=== PATIENT | male | born 1950 | race Caucasian/White ===

== ENCOUNTER 2021-11-18 06:40 | Day surgery (SDC) | payer OTHER ==
[~2021-11-18] VITALS: Ht 172.7 cm; Wt 111.4 kg
[~2021-11-18 06:40] MED LIST: ALOGLIPTIN25 MG PO; CARDIZEM CD240 MG; GLYCOTROL CAPS1 EACH PO; LEVAQUIN500 MG PO; LEVOTHYROXINE125 MCG; LIPITOR10 MG; LISINOPRIL20 MG PO; SPIRIVA18 MCG INH; VENTOLIN HFA18 GM INH
--- NOTE | 2021-11-18 11:24 | NUR ---
11/18/21 1124 Kate Niño 1114- PT ARRIVES TO PACU NONAROUSABLE TO STIMULI WITH AN NPA IN PLACE. RESP EVEN AND UNLABORED. OXYGEN SAT HIGH 90'S TO 100% ON 6L VIA MASK. 1117- PT WAKING UP ON HIS OWN. PT UPDATED THAT HE IS IN THE RECOVERY ROOM. ASKED PT IF HE WANTS THE NPA OUT OF HIS NOSE. PT NODS. NPA REMOVED. 1119- PT TRYING TO REPOSITION HIMSELF. PT ASSISTED WITH HELP FROM ANOTHER RN. PT ROLLED TO HIS BACK AND SAT UP IN BED. PT PROVIDED TISSUES TO BLOW HIS NOSE. OXYGEN TITRATED OFF.
--- NOTE | 2021-11-19 07:11 | OR ---
[facility] [address], [place] [address] Signed DATE OF OPERATION: 11/18/2021 SURGEON: Robbie Carrillo MD PREOPERATIVE DIAGNOSES: 1. Mild iron-deficiency anemia. 2. Diverticulosis. POSTOPERATIVE DIAGNOSES: 1. Mild diffuse gastric duodenitis. 2. 5-mm polyp at 65 cm. 3. Minimal to moderate sigmoid diverticulosis. 4. Minimal to moderate internal and external hemorrhoids. PROCEDURES: 1. EGD with CLOtest, biopsies of the pyloric bulb and antrum. 2. Colonoscopy with hot biopsy. ESTIMATED BLOOD LOSS: None. INDICATIONS: Nika is an obese, diabetic gentleman, asked to see me for upper and lower endoscopy. He was found to have some mild iron-deficiency anemia recently with a hemoglobin of 12.2 and a mean cell volume of 79. He took iron tablets and that is now corrected that hemoglobin 14.1 and mean cell volume of 89. He recalls a colonoscopy around age 51 - 56. He was told he had a little bit of diverticulosis, but not to worry about it. He has no family history of colon cancer or polyps. In the office, I gave him pamphlets on both upper and lower endoscopy. We had reviewed the nature of the test along with the risks including, but not limited to gas bloating, crampy abdominal pain, bleeding, perforation requiring surgery, and missed diagnosis. Also because of his advanced medical issues along with his right around full face and heavy neck, we asked that an anesthesia provider help us with increased monitoring sedation with propofol. That proved to be a gonzalez decision as he required a nasal trumpet and an oral airway. PROCEDURE NOTE: Nika was taken into our endoscopy suite and placed in a supine semi-recumbent position. He was given monitored anesthesia care per our nurse farmworker rice. He ended up needing a nasal trumpet and oral airway. He also needed jaw thrust. After a bit, he settled down, we were able to pass the adult gastroscope down into the duodenum itself. Electronically Signed By: ROBBIE CARRILLO MD 11/19/21 0711 PATIENT NAME: NIKA STARK EMRY III OPERATIVE REPORT DATE OF : 52 REPORT #: [id number] PHYSICIAN: ROBBIE CARRILLO MD PCP: KEITH HDZ MD REPORT IS CONFIDENTIAL AND NOT TO BE RELEASED WITHOUT AUTHORIZATION [facility] [address] [place], [place] [address] Signed The duodenum was unremarkable. The pyloric channel in the stomach showed mild diffuse erythematous changes. No ulcerations. We took biopsies at the pyloric channel and the antrum for pathologic review. We took an additional biopsy of the antrum for CLOtest. Upon retroflexion of scope, he does not appear to have a much of a hiatal hernia. He might just have a bit of a short lower esophageal sphincter. The scope was withdrawn up to the GE junction, which was compliant without stricture. Very minimal disruption to his Z-line. There was no Bond's mucosa. No distal esophagitis. No gastric or esophageal varices. The middle and upper esophagus were unremarkable. After this, the gas was suctioned out and the gastroscope removed. Nika tolerated the procedure quite well. Nika was then rotated into the left lateral decubitus position. He was maintained on monitored anesthesia care. A digital rectal exam was performed and he does have minimal to moderate external circumferential hemorrhoids. A good sphincter tone. His prostate is indurated and enlarged consistent with his age. The adult colonoscope was introduced and advanced under direct visualization of the camera. It took just a little extra abdominal compression in order to advance the scope around hepatic flexure and down into the cecum itself. His prep was good. We could see the appendiceal orifice and the ileocecal valve. We took pictures throughout for photodocumentation. The scope was then slowly withdrawn. He had one small 5-mm polyp removed at 65 cm with the help of a hot biopsy forceps. He does have diverticula in the sigmoid colon. They were moderate in size, few in number, and scattered about. The rectum was unremarkable. Upon retroflexion of scope, he does have minimal to moderate internal hemorrhoids as well. After this, the gas was suctioned out. The colonoscope removed. Nika tolerated the procedure quite well. RECOMMENDATIONS: I will see Nika back in my office in 7 to 14 days to review his results. Robbie Carrillo MD ALB/MODL /[id number] cc: Robbie Carrillo MD Electronically Signed By: ROBBIE CARRILLO MD 11/19/21 0711 PATIENT NAME: NIKA STARK EMRY III OPERATIVE REPORT DATE OF : 52 REPORT #: [id number] PHYSICIAN: ROBBIE CARRILLO MD PCP: KEITH HDZ MD REPORT IS CONFIDENTIAL AND NOT TO BE RELEASED WITHOUT AUTHORIZATION [facility] [address] [place], [place] [address] Signed [facility] Copies: ROBBIE CARRILLO MD ~ Electronically Signed By: ROBBIE CARRILLO MD 11/19/21 0711 PATIENT NAME: NIKA STARK CIPRIANO III OPERATIVE REPORT DATE OF : 52 REPORT #: [id number] PHYSICIAN: ROBBIE CARRILLO MD PCP: KEITH HDZ MD REPORT IS CONFIDENTIAL AND NOT TO BE RELEASED WITHOUT AUTHORIZATION
--- NOTE | 2021-11-22 14:40 | PATH ---
[facility] [address] [place], [place] [address] Signed SPECIMEN(S): A PYLORIC CHANNEL BIOPSY SPECIMEN(S): B ANTRUM/PYLORUS BIOPSY SPECIMEN(S): C COLON POLYP AT 65 CM SPECIMEN SOURCE: A. PYLORIC CHANNEL BIOPSY B. ANTRUM/PYLORUS BIOPSY C. COLON POLYP AT 65 CM CLINICAL HISTORY: Pre-op: Anemia, diverticulosis. Post-op: Diverticulosis, polyp, internal and external hemorrhoids. FINAL PATHOLOGIC DIAGNOSIS: A. Designated "pyloric channel", biopsy: - Duodenal mucosa with no histopathologic abnormality. - Negative for increased intraepithelial lymphocytes or villous blunting. - Negative for dysplasia or malignancy. B. Stomach, antrum/pylorus, biopsy: - Antral mucosa with chronic, inactive gastritis. - Negative for Helicobacter pylori organisms on HE stain. - Negative for dysplasia or malignancy. C. Colon, polyp at 65 cm, polypectomy: - Tubular adenoma. - Negative for high-grade dysplasia or malignancy. NAL:cml:C2NR MICROSCOPIC EXAMINATION: Histologic sections of all submitted blocks are examined by light microscopy. These findings, together with the gross examination, support the pathologic diagnosis. GROSS DESCRIPTION: Three specimens are received in three containers, labeled "HD." A. The specimen, labeled "HD, 1," and designated on the requisition "pyloric channel," is received in formalin and consists of one baptiste soft tissue fragment that measures 0.3 cm in greatest dimension. The specimen is entirely submitted in cassette (A1). B. The specimen, labeled "HD, 2," and designated on the requisition "antrum/pylorus," is received in formalin and consists of one baptiste soft tissue fragment that measures 0.3 cm in greatest dimension. PATIENT NAME: NIKA STARK III PATHOLOGY DATE OF : 52 REPORT #: [id number] PHYSICIAN: [facility] PCP: KEITH HDZ MD REPORT IS CONFIDENTIAL AND NOT TO BE RELEASED WITHOUT AUTHORIZATION [facility] [address] [place], [place] [address] Signed The specimen is entirely submitted in cassette (B1). C. The specimen, labeled "HD, 3," and designated on the requisition "colon polyp at 65 cm," is received in formalin and consists of two baptiste soft tissue fragments that measure 0.3 cm in greatest dimension. The specimen is entirely submitted in cassette (C1). AT (under the direct supervision of a pathologist) The Gross Description was prepared using a voice recognition system. The report was reviewed for accuracy; however, sound-alike word errors, addition and/or deletions may occur. If there is any question about this report, please contact Client Services. PERFORMING LABORATORY: The technical component was performed by [employer], [address] [place] [id number] (Airplane Flight Attendant Supervisor: Radha Martinez MD; CLIA# [id number]). [facility], [address] [address] (CLIA# [id number]). Diagnostician: Naila Robertson MD Pathologist Electronically Signed 11/22/2021 Copies: ~ PATIENT NAME: NIKA STARKArthur III PATHOLOGY DATE OF : 52 REPORT #: [id number] PHYSICIAN: LORETTA ROSE PCP: KEITH HDZ MD REPORT IS CONFIDENTIAL AND NOT TO BE RELEASED WITHOUT AUTHORIZATION
== END 2021-11-18 11:55 | disposition home or self-care (01) ==
LOC: DS 06:40
PROVIDERS: ATTEND Colon & Rectal Surgery
PROC: 0DB68ZZ Excision of Stomach, Via Natural or Artificial Opening Endoscopic (ICD-10-PCS; principal; 2021-11-18 08:15)
PROC: 0DBE8ZZ Excision of Large Intestine, Via Natural or Artificial Opening Endoscopic (ICD-10-PCS; 2021-11-18 08:15)
DX: D50.9 Iron deficiency anemia, unspecified (principal); K57.30 Diverticulosis of large intestine without perforation or abscess without bleeding; K64.4 Residual hemorrhoidal skin tags; K64.8 Other hemorrhoids; K29.90 Gastroduodenitis, unspecified, without bleeding; D12.6 Benign neoplasm of colon, unspecified; E66.9 Obesity, unspecified; E11.9 Type 2 diabetes mellitus without complications; G47.33 Obstructive sleep apnea (adult) (pediatric); J44.9 Chronic obstructive pulmonary disease, unspecified; E03.9 Hypothyroidism, unspecified; Z68.37 Body mass index [BMI] 37.0-37.9, adult; Z79.84 Long term (current) use of oral hypoglycemic drugs
CPT/HCPCS: 36415; 87077; J2704; J7121

== ENCOUNTER 2025-03-17 11:37 | Inpatient (IN) | payer OTHER ==
[2025-03-17] VITALS (10 sets, daily range): BP systolic 88–124; BP diastolic 58–89
[~2025-03-17] VITALS: Ht 172.7 cm; Wt 116.4 kg
[~2025-03-17 11:37] MED LIST changes: -LEVOTHYROXINE125 MCG; -LIPITOR10 MG; +LIPITOR10 MG PO; -LISINOPRIL20 MG PO; +LISINOPRIL40 MG PO; +SYNTHROID150 MCG PO
[2025-03-17] MEDS ORDERED: ALBUTEROL/IPRATROPIUM 3 ML NEB INH ONE (12:00)
[2025-03-17 12:15] LABS: BASOPHILS 0.8 % (0.2-1.2); EOSINOPHILS 0.5 % (0.8-7.0); LYMPHOCYTES 15.9 % (21.8-53.1); MCH 29.5 PG (25.7-32.2); MCHC 29.9 g/dL (32.3-36.5); MCV 98.9 fL (79.0-92.2); MONOCYTES 10.0 % (5.3-12.2); NEUTROPHILS 72.6 % (34.0-67.9); RBC 4.47 M/uL (4.63-6.08)
[2025-03-17 12:40] LABS: ALT (SGPT) 16.0 U/L (14-59); AST (SGOT) 19.0 U/L (15-37); GLOMERULAR FILTRATION RATE,EST 47.0 mL/min (>60); PROTEIN, TOTAL 7.5 g/dL (6.4-8.2); UREA NITROGEN 61.0 mg/dL (7-18)
[2025-03-17 12:47] LABS: LACTIC ACID, BLOOD 3.1 mmol/L (0.4-2.0)
[2025-03-17 15:03] LABS: LACTIC ACID, BLOOD 0.9 mmol/L (0.4-2.0)
--- NOTE | 2025-03-17 15:10 | NUR ---
PT NEEDING TO USE RESTROOM. PT SAT AT EDGE OF BED AND USED URINAL INDEPENDENTLY. 250 MLS OUT. PT NOW BACK IN BED, TRAY SET UP FOR DINNER TRAY. GRAND-DAUGHTER AT BEDSIDE. CALL LIGHT IN REACH
[2025-03-17] MEDS ORDERED: AZITHROMYCIN 250 MG TAB PO SCH (15:12)
[2025-03-17] MEDS ORDERED: GLUCAGON,HUMAN RECOMBINANT 1 MG/ML VIAL SUB-Q PRN (15:15)
[2025-03-17] MEDS ORDERED: DEXTROSE 5% 1,000 ML IV PRN (15:15)
[2025-03-17] MEDS ORDERED: FUROSEMIDE 20 MG/2 ML VIAL IV ONE (15:15)
[2025-03-17] MEDS ORDERED: DEXTROSE 50% 50 ML SYR IV PRN ×2 (15:15)
[2025-03-17] MEDS ORDERED: IBLOOD GLUCOSE TEST STRIP 1 EA TEST XX PRN (15:15)
[2025-03-17] MEDS ORDERED: ACETAMINOPHEN 325 MG TAB PO PRN (15:15)
--- NOTE | 2025-03-17 15:21 | EKG ---
[facility] [address] [facility] [place] [address] Signed Atrial fibrillation with rapid ventricular response Low voltage QRS Cannot rule out Anterior infarct (cited on or before 14-NOV-2021) Abnormal ECG When compared with ECG of 14-NOV-2021 09:38, Atrial fibrillation has replaced Sinus rhythm Vent. rate has increased BY 69 BPM Questionable change in initial forces of Anteroseptal leads Nonspecific T wave abnormality now evident in Inferior leads Confirmed by Vicky Barron DO ([id number]) on 03/17/2025 3:21:08 PM Electronically Signed By: VICKY BARRON DO 03/17/25 1521 PATIENT NAME: NIKA STARK III Electrocardiogram DATE OF : 52 PHYSICIAN: VICKY BARRON DO REPORT #: [id number] REPORT IS CONFIDENTIAL AND NOT TO BE RELEASED WITHOUT AUTHORIZATION
[2025-03-17] MEDS ORDERED: ALBUTEROL SULFATE 0.083% 3 ML VIAL INH PRN (15:30)
[2025-03-17] MEDS ORDERED: ALBUTEROL/IPRATROPIUM 3 ML NEB INH SCH (16:00)
--- NOTE | 2025-03-17 16:00 | NUR ---
PT ARRIVAL TO CCU ROOM. PT TRANSFERRED TO CCU BED VIA 1PA, PT WEAK AND SLIGHTLY UNSTEADY ON FEET. HOME CLOTHING REMOVED AND GOWN REINFORCED. PT ALERT AND ORIENTED, ANSWERS QUESTIONS APPROPRIATELY. ASSESSMENT COMPLETE, LUNG SOUNDS TIGHT AND DIMINISHED. HEART RATE 130'S, DILTIZEM DRIP TITRATED PER ORDER.
--- NOTE | 2025-03-17 16:45 | NUR ---
ECHO SCAN COMPLETE. RE-ADJUSTED PT IN BED, PROVIDED WITH BLANKET. CALL LIGHT IN REACH
[2025-03-17] MEDS ORDERED: Perflutren Lipid Microspheres 2.2 MG/2 ML VIAL IV ONE (16:53)
[2025-03-17] MEDS ORDERED: IBLOOD GLUCOSE TEST STRIP 1 EA TEST VI SCH (17:00)
[2025-03-17] MEDS ORDERED: INSULIN LISPRO 100 UNIT/ML ML SUB-Q SCH (17:00)
[2025-03-17] MEDS ORDERED: ATORVASTATIN 10 MG TAB PO SCH (17:00)
[2025-03-17] MEDS ORDERED: METFORMIN HCL850 MG PO (17:21)
[2025-03-17] MEDS ORDERED: ALLOPURINOL100 MG PO (17:21)
[2025-03-17] MEDS ORDERED: OZEMPIC1 MG/0.71 (17:22)
[2025-03-17] MEDS ORDERED: MAGNESIUM OXID400 M1 PO (17:25)
[2025-03-17] MEDS ORDERED: 24 HOUR ALLERG9.9 ML NAS (17:25)
[2025-03-17] MEDS ORDERED: HYDROXYZINE HCL25 MG PO (17:26)
--- NOTE | 2025-03-17 18:08 | NUR ---
DR PERRY INFORMED OF PT HEART RATE IN 115-120'S ON 15 MG OF DILTIZEM DRIP, BLOOD PRESSURE STABLE. ALSO INFORMED OF PT BEING ON 5L NC TO MAINTAIN LOW 90'S SATURATION. VERBAL ORDER RECEIVED FOR MEDICATION ORDER
[2025-03-17] MEDS ORDERED: METOPROLOL TARTRATE 25 MG TAB PO SCH ×2 (18:30→21:00)
--- NOTE | 2025-03-17 19:06 | NUR ---
PT BROTHER AT BEDSIDE TO VISIT, NO DISTRESS NOTED. CALL LIGHT IN REACH
--- NOTE | 2025-03-17 20:23 | NUR ---
ASSUMPTION OF CARE Upon initial assessment, pt resting comfortably in bed watching tv. Denies pain, needs met, call light within reach. Pt is A&O but very hard of hearing. Hearing aids at beside charging. AFIB RVR. HR 90's-120's. Dilt gtt @ 15 mg/hr. Goal HR < 100. MAP > 65. BLE edema, pitting, 3+, pain without proportion to pressure. Lung sounds diminished/tight, improved after evening beds. Pt denies SOB. Currently on 5L via NC, Goal SpO2 88-92% per RN shift report. Pt is supposed to wear CPAP @ night, family to bring in. DM2. AC/HS. BGL this evening 170, received 3u SSI and 20u glargine per orders. No s/s of acute distress at this time.
[2025-03-17] MEDS ORDERED: BUDESONIDE 0.5 MG/2 ML VIAL INH SCH (21:00)
[2025-03-17] MEDS ORDERED: HEParin SOD (PORCINE) 5,000 UNIT/ML SDV SUB-Q SCH (21:00)
[2025-03-17] MEDS ORDERED: MELATONIN 3 MG TAB PO PRN (21:00)
[2025-03-17] MEDS ORDERED: INSULIN GLARGINE-YFGN 100 UNIT/ML ML SUB-Q SCH (21:00)
--- NOTE | 2025-03-17 21:00 | NUR ---
UPDATE: Pt's family brought in his CPAP from home. Pt's home CPAP not safe for use d/t resevoir full of dirt/sediment, unable to be cleaned, needs replacement. RT spoke with pt and his family at length regarding cleaning and management of CPAP. Pt's daughter takes care of pt and pt's who has dementia. Daughter has expressed that she has minimal support/help. Continue to reinforce education d/t knowledge decificts.
[2025-03-18] VITALS (48 sets, daily range): BP systolic 61–134; BP diastolic 30–115
--- NOTE | 2025-03-18 01:14 | NUR ---
UPDATE: Hypotension Recent BPs: BP 73/57 (MAP 62) BP 71/55 (MAP 62) This RN notified Dr. Truong regarding pt's hypotension. Hydrocortisone 300mg IV Daily ordered per MD. Diltiazem gtt has been stopped since roughly midnight. HR sustaining 70's-90's. Pt denies chest pain, dizziness, appears asymptomatic. Pt did receive melatonin about an hr before BP drop, MD aware. After steroids have been given, phone MD if BP does not improved in an hour, per MD. RN awaiting med verification by pharm
[2025-03-18] MEDS ORDERED: HYDROCORTISONE SOD SUCCINATE 100 MG/2 ML VIAL IV SCH (01:15)
--- NOTE | 2025-03-18 02:52 | NUR ---
UPDATE: Persistent hypotension with SBP 70's, asymptomatic. This RN notified Dr. Truong. Plan to administer 500ml LR bolus now. If BP does not improve, will start levophed gtt per MD.
[2025-03-18] MEDS ORDERED: LACTATED RINGER'S 500 ML IV ONE (03:00)
[2025-03-18] MEDS ORDERED: NOREPINEPHRINE BITARTRATE 250 ML IV SCH (03:30)
[2025-03-18] MEDS ORDERED: NOREPINEPHRINE BITARTRATE 250 ML IV ONE (03:32)
[2025-03-18 05:21] LABS: BASOPHILS 0 % (0.2-1.2); EOSINOPHILS 0 % (0.8-7.0); LYMPHOCYTES 7.5 % (21.8-53.1); MCH 29.6 PG (25.7-32.2); MCHC 30.7 g/dL (32.3-36.5); MCV 96.6 fL (79.0-92.2); MONOCYTES 4.3 % (5.3-12.2); NEUTROPHILS 87.9 % (34.0-67.9); RBC 4.12 M/uL (4.63-6.08)
--- NOTE | 2025-03-18 05:58 | NUR ---
UPDATE: Upon assessment, pt wheezing. Denies SOB, no labored breathing notes. On 5L via NC, SpO2 90's. RT to administer neb. No s/s acute distress at this time.
[2025-03-18 06:02] LABS: GLOMERULAR FILTRATION RATE,EST 32.0 mL/min (>60); UREA NITROGEN 63.0 mg/dL (7-18)
--- NOTE | 2025-03-18 06:12 | NUR ---
UPDATE: Critical lab: K 7.2 Dr. Truong notified, on his way to unit. No orders at this time.
[2025-03-18] MEDS ORDERED: SODIUM CHLORIDE 0.9% 1,000 ML IV PRN (06:45)
[2025-03-18] MEDS ORDERED: DEXTROSE 50% 50 ML SYR IV ONE ×2 (06:45→17:30)
[2025-03-18] MEDS ORDERED: Insulin Regular, Human 100 UNIT/ML ML IV ONE ×2 (06:45→17:30)
[2025-03-18] MEDS ORDERED: CALCIUM GLUCONATE 1,000 MG/10 ML VIAL IV ONE ×2 (06:45→17:30)
[2025-03-18] MEDS ORDERED: LEVOTHYROXINE SODIUM 125 MCG TAB PO SCH (07:00)
--- NOTE | 2025-03-18 07:20 | NUR ---
PT RESTING IN BED, CALL LIGHT IN REACH. NO DISTRESS NOTED AT THIS TIME. CALL LIGHT IN REACH
--- NOTE | 2025-03-18 07:24 | NUR ---
UPDATE: D50% 50ML, Ca Gluconate 1000mg, and 10u IVP insulin given per MD orders for treatment of hyperkalemia. K 7.2. Crespo catheter inserted d/t urinary retention/difficulty voiding with worsening renal function labs, per MD orders. Pt tolerated well.
[2025-03-18] MEDS ORDERED: LIDOCAINE 2% VISCOUS 6 ML SYR TOP ONE (07:30)
--- NOTE | 2025-03-18 08:00 | NUR ---
INTO ROOM TO ANSWER CALL LIGHT. PT NEEDING TO HAVE BOWEL MOVEMENT. ASSISTED OVER TO BEDSIDE COMMODE VIA 1PA. PT TACHYPNEIC AND TACHYCARDIC GETTING OVER TO COMMODE. SMALL BM PRESENT IN COMMODE. PT NOW SITTING IN CHAIR, RT AT BEDSIDE FOR BREATHING TREATMENT
[2025-03-18] MEDS ORDERED: predniSONE 20 MG TAB PO SCH (09:00)
[2025-03-18 09:05] LABS: ALT (SGPT) 14.0 U/L (14-59); AST (SGOT) 16.0 U/L (15-37); GLOMERULAR FILTRATION RATE,EST 30.0 mL/min (>60); PROTEIN, TOTAL 6.5 g/dL (6.4-8.2); UREA NITROGEN 62.0 mg/dL (7-18)
--- NOTE | 2025-03-18 09:25 | NUR ---
INTO ROOM FOR MEDICATION ADMINISTRATION. PT RESTING IN CHAIR, BREAKFAST TRAY CLEARED. PT WANTING TO GET BACK IN BED, MOVED OVER VIA 1PA. UPDATED ON PLAN OF CARE FOR TODAY. CALL LIGHT IN REACH
[2025-03-18 09:27] LABS: BLOOD/HGB, URINE NEGATIVE (Negative); KETONE, URINE TRACE (Negative); LEUK ESTERASE, URINE NEGATIVE (negative); NITRITE, URINE NEGATIVE (negative)
[2025-03-18 09:33] LABS: BACTERIA, URINE 1+ /hpf (negative); CASTS, URINE GRANULAR 1+ \\lpf; CRYSTALS, URINE NONE SEEN (0-1+); EPITHELIAL CELLS, URINE SQUAMOUS 1+ /lpf (0-1+); REFLEX CULTURE, URINE Yes (No)
--- NOTE | 2025-03-18 09:49 | NUR ---
UR CLINICAL REVIEW: MCG, MEETS INPT FOR ATRIAL FIBRILLATION IV DILTIAZEM DRIP, ECHO, HYPOTENSIVE, OXYGEN WITH NO BASELINE NEED [facility] IN[facility] 03/17/2025 @ 1511 ORDER MATCHES REG AUTH PENDING, CLINICALS WILL BE SENT VIA RIGHTFAX TODAY DC PLAN PENDING FURTHER EVAL AND TREATMENT
--- NOTE | 2025-03-18 10:30 | NUR ---
PT TAKEN TO CT ON MONITOR WITH X2 NURSING STAFF. PT MOVED TO CT TABLE WITH ASSISTANCE. DENIES SHOB WHILE LAYING FLAT ON TABLE.
[2025-03-18] MEDS ORDERED: LACTATED RINGER'S 1,000 ML IV SCH (10:45)
--- NOTE | 2025-03-18 10:50 | NUR ---
BACK TO CCU ROOM FROM CT. ASSISTED PT WITH REPOSITIONING IN BED. DENIES NEEDS AT THIS TIME, CALL LIGHT IN REACH
--- NOTE | 2025-03-18 11:10 | NUR ---
ALERT AND ORIENTED IN BED. STATES HE LIVES IN SINGLE LEVEL HOME WITH HIS , BELKIS, WHO HAS DEMENTIA. STATES HE IS HER PRIMARY CAREGIVER BUT HIS DAUGHTER HELPS. HE STATES HIS HAS A WALKER, BUT HE DOES NOT. HIS ONLY DME IS A CPAP MACHINE HE DOES NOT USE REGULARLY. PATIENT DRIVES AT BASELINE. DENIES ANY ISSUES PAYING UTILITES, FOR FOOD OR MEDICATIONS. PLANS TO RETURN HOME WHEN MEDICALLY READY.
--- NOTE | 2025-03-18 11:40 | NUR ---
INTO ROOM FOR ACCU-CHECK. CBG 205, INSULIN GIVEN PER ORDER. LUNCH TRAY HERE. ASSISTED PT WITH REPOSITIONING IN BED AND PLACED TRAY IN FRONT OF HIM. DENIES FURTHER NEEDS AT THIS TIME, CALL LIGHT IN REACH
[2025-03-18] MEDS ORDERED: ALBUTEROL/IPRATROPIUM 3 ML NEB INH SCH (12:00)
[2025-03-18] MEDS ORDERED: PHARMACY RENAL DOSE ADJUSTMENT 1 DOSE MISC PO SCH (12:00)
[2025-03-18] MEDS ORDERED: METOPROLOL TARTRATE 25 MG TAB PO SCH ×2 (12:15→14:00)
--- NOTE | 2025-03-18 12:31 | NUR ---
SPOKE WITH DAUGHTER BRENNAN. STATES SHE IS CURRENTLY FULLTIME CAREGIVING FOR PATIENT AND HIS SPOUSE. STATES SHE HAS HAD TO QUIT HER JOB TO CARE FOR THEM. STATES MOTHER HAS BAD DEMENTIA AND PATIENT IS HAVING INCREASING DIFFICULTY CARING FOR HIS SELF. BRENNAN COOKS FOR THEM, DOES THEIR HOUSE WORK, LAUNDRY. STATES IT IS BECOMING TOO OVERWHELMING TO CONTINUE. THEY HAVE BEEN IN TOUCH WITH AGING AND DISABILITY AND PATIENT AND SPOUSE DO NOT QUALIFY FOR ASSISTANCE. STATES THEY DO NOT HAVE THE MONEY FOR A PRIVATE CAREGIVER EITHER. DAUGHTER BELIEVES PATIENT IS 25% SERVICE CONNECTED, DUE TO AGENT ORANGE EXPOSURE, WITH [facility]. CALLED [facility]ENOIT AT [facility] TO DISCUSS SERVICE CONNECTION AND OPTIONS THAT MAY BE POSSIBLE FOR PATIENT. INFORMED BRENNAN THAT STAFF WILL UPDATE HER ONCE THIS NURSE IS ABLE TO SPEAK WITH [facility].
--- NOTE | 2025-03-18 12:40 | NUR ---
PT RESTING IN BED, COMPLETED WITH LUNCH TRAY. CLEARED PER REQUEST. PT DAUGHTER, ZOILA AT BEDSIDE. DENIES FURTHER NEEDS, CALL LIGHT IN REACH
[2025-03-18] MEDS ORDERED: SODIUM ZIRCONIUM CYCLOSILICATE 10 GM PACK PO ONE (13:00)
[2025-03-18] MEDS ORDERED: VIAGRA100 MG PO (13:05)
[2025-03-18] MEDS ORDERED: ARTHRITIS PAIN150 G1 TOP (13:06)
[2025-03-18] MEDS ORDERED: LANTUS SOL100 UNIT/1 SUB-Q (13:07)
[2025-03-18] MEDS ORDERED: B-121000 MC2 PO (13:08)
[2025-03-18] MEDS ORDERED: ARTIFICIAL TEAR15 M6 OP (13:10)
--- NOTE | 2025-03-18 13:45 | NUR ---
PT URINE OUTPUT POOR FOR TODAY. ABDOMEN FEELS HARD, PT DENIES "FULLNESS" FEELING. BLADDER SCAN COMPLETE, SHOWS 0 MLS PRESENT IN BLADDER. HAUSER CONTINUES TO DRAIN WNL, JUST SMALL AMOUNTS.
--- NOTE | 2025-03-18 13:46 | NUR ---
PT RESTING IN BED, WATCHING TV. DENIES NEEDS, CALL LIGHT IN REACH
--- NOTE | 2025-03-18 14:33 | NUR ---
PT RESTING WITH EYES CLOSED, NO DISTRESS NOTED. IVF CONTINUING PER ORDER. CALL LIGHT IN REACH
--- NOTE | 2025-03-18 15:30 | NUR ---
PT RESTING IN BED, WATCHING TV. IVF CONTINUING PER ORDER. NO RESPIRATORY DISTRESS NOTED, TOLERATING 4L VIA NC WELL. DENIES FURTHER NEEDS, CALL LIGHT IN REACH
--- NOTE | 2025-03-18 15:36 | NUR ---
medications reconciled using [facility] records and patient interview
[2025-03-18 16:14] LABS: GLOMERULAR FILTRATION RATE,EST 30.0 mL/min (>60); UREA NITROGEN 66.0 mg/dL (7-18)
--- NOTE | 2025-03-18 16:33 | NUR ---
PT RESTING IN BED, RT AT BEDSIDE FOR BREATHING TREATMENT. DR BARRON CALLED DUE TO CRITICAL POTASSIUM OF 6.7 NO LONGER BELIEVES WE HAVE THE ABILITIES TO CARE FOR PATIENT, INSTRUCTED TO START MAKING CALLS FOR TRANSFER TO HIGHER LEVEL OF CARE
--- NOTE | 2025-03-18 16:53 | NUR ---
SPOKE WITH ANDREEA BENOIT AT [facility]. PATIENT IS 50% SERVICE CONNECTED WITH [facility]. WILL LIKELY NOT GET CAREGIVER HOURS UNLESS HE WERE TO GO ON HOSPICE CARE. [facility] FAXED FOR FAMILY/PATIENT EDUCATION, POTENTIAL RESPITE CARE, LITIGATION EXAMINER AND HOUSEKEEPING ASSISTANCE.
--- NOTE | 2025-03-18 17:18 | NUR ---
PT SITTING IN BED, EATING DINNER. IVF CONTINUING. WATER REFRESHED, CALL LIGHT IN REACH, DENIES NEEDS AT THIS TIME
--- NOTE | 2025-03-18 18:23 | NUR ---
PT RESTING IN BED, WATCHING TV. UPDATED ON ACCEPTANCE AT [facility], AWAITING BED SPACE. PT AWARE OF PLAN. DENIES FURTHER NEEDS, CALL LIGHT IN REACH
[2025-03-18] MEDS ORDERED: AMIODARONE/DEXTROSE 100 ML IV ONE (18:30)
--- NOTE | 2025-03-18 18:40 | NUR ---
INTO ROOM FOR NEW MEDICATION ORDERS. UPDATED PT ON PLAN OF CARE AND TIME FOR TRANSFER. ALL QUESTIONS ANSWERED. PT DENIES SHOB, REPORTS FEELING "OK." NO DISTRESS NOTED, PT TOLERATING WELL ON 4L NC. CALL LIGHT IN REACH
[2025-03-18] MEDS ORDERED: AMIODARONE/DEXTROSE 200 ML IV ONE (18:45)
--- NOTE | 2025-03-18 19:45 | NUR ---
NIKA IS CURRENTLY ON A 4L HFNC SALTER OFF THE WALL. HE IS ABLE TO USE THE COR[place] LEVEL 5 W/O DIFFICULTY OR INCREASED S/S OF RESPIRATORY DISTRESS. NIKA STATED THAT HE WAITING FOR THE PLANE TO GO TO [facility] IN [place].
--- NOTE | 2025-03-18 20:36 | NUR ---
REPORT PROVIDED TO [facility] WHICH TRANSPORTED PATIENT TO HIGHER LEVEL OF CARE. PATIENT AAOX4; VS STABLE ON DISCHARGE. AMIODARONE AND OXYGEN CONTINUED ON DISCHARGE. ALL BELONGINGS WITH PATIENT. UPDATE CALLED TO RECEIVING RN.
[2025-03-19] MEDS ORDERED: LEVOTHYROXINE SODIUM 150 MCG TAB PO SCH (07:00)
== END 2025-03-18 20:32 | disposition short-term general hospital (02) | DRG 308 ==
LOC: ED 11:37 → CCU 15:17
PROVIDERS: Emergency Medicine; ADMIT Student in an Organized Health Care Education/Training Program; ATTEND Student in an Organized Health Care Education/Training Program
PROC: 5A0935A Assistance with Respiratory Ventilation, Less than 24 Consecutive Hours, High Flow/Velocity Cannula (ICD-10-PCS; principal; 2025-03-17)
PROC: 3E03329 Introduction of Other Anti-infective into Peripheral Vein, Percutaneous Approach (ICD-10-PCS; 2025-03-17)
PROC: 3E033XZ Introduction of Vasopressor into Peripheral Vein, Percutaneous Approach (ICD-10-PCS; 2025-03-18)
PROC: 0T9B70Z Drainage of Bladder with Drainage Device, Via Natural or Artificial Opening (ICD-10-PCS; 2025-03-18)
DX: I48.20 Chronic atrial fibrillation, unspecified (principal); J96.01 Acute respiratory failure with hypoxia; N17.9 Acute kidney failure, unspecified; J44.1 Chronic obstructive pulmonary disease with (acute) exacerbation; E11.9 Type 2 diabetes mellitus without complications; E03.9 Hypothyroidism, unspecified; I35.0 Nonrheumatic aortic (valve) stenosis; E87.5 Hyperkalemia; E78.00 Pure hypercholesterolemia, unspecified; I95.9 Hypotension, unspecified; I11.0 Hypertensive heart disease with heart failure; I50.9 Heart failure, unspecified; Z79.890 Hormone replacement therapy; Z87.891 Personal history of nicotine dependence
CPT/HCPCS: 36415; 51702; 71045; 74176; 80048; 80053; 81001; 83036; 83605; 83735; 83880; 84443; 84484; 85025; 87088; 93005; 93010; 93306; 94640; 94667; 94668; 94762; 94799; A9270; J0282; J0612; J0696; J1644; J1720; J1815; J1938; J2919; J7030; J7121; J7512; Q9957